=== PATIENT | female | born 1955 | race Caucasian/White ===

== ENCOUNTER 2025-06-13 14:49 | Emergency (ER) | payer OTHER ==
[~2025-06-13] VITALS: Ht 152.4 cm; Wt 31.8 kg
[2025-06-13 15:13] LABS: BASOPHILS ABSOLUTE AUTO 0.07 K/mm3 (0.00-0.23); BASOPHILS PERCENT AUTO 1 % (0-2); EOSINOPHILS ABSOLUTE AUTO 0.10 K/mm3 (0.00-0.68); EOSINOPHILS PERCENT AUTO 1 % (0-6); Hematocrit 33.2 % (33.0-51.0); Hemoglobin 10.7 g/dL (11.5-16.0); IMMATURE GRAN ABSOLUTE AUTO 0.03 K/mm3 (0.00-0.10); IMMATURE GRAN PERCENT AUTO 0 % (0-1); LYMPHOCYTES ABSOLUTE AUTO 1.47 K/mm3 (0.84-5.20); LYMPHOCYTES PERCENT AUTO 19 % (21-46); MONOCYTES ABSOLUTE AUTO 0.56 K/mm3 (0.16-1.47); MONOCYTES PERCENT AUTO 7 % (4-13); Mean Corpuscular HGB Conc 32.2 g/dL (31.5-36.5); Mean Corpuscular Volume 94 fL (80-100); NEUTROPHILS ABSOLUTE AUTO 5.35 K/mm3 (1.96-9.15); NEUTROPHILS PERCENT AUTO 71 % (41-73); NRBC ABSOLUTE 0.00 K/mm3 (0.00-0.02); NRBC Auto 0.0 /100 WBC (0.0-0.2); Platelet Count 270 K/mm3 (150-400); RDW Coefficient Variation 15.2 % (11.7-14.2); RDW Standard Deviation 52.6 fL (35.1-46.3)
[2025-06-13 15:46] LABS: Alanine Aminotransfer (ALT/SGP 14.0 U/L (12-78); Albumin, Blood 3.0 g/dL (3.4-5.0); Albumin/Globulin Ratio 0.7 (0.8-1.8); Anion Gap 8.0 mmol/L (3-11); Aspartate Aminotrans (AST/SGOT 21.0 U/L (12-37); Bilirubin, Total 0.2 mg/dL (0.1-1.0); Blood Urea Nitrogen 18.0 mg/dL (8-24); CO2, Blood 20.0 mmol/L (21-32); Calcium, Blood 9.1 mg/dL (8.5-10.1); Chloride, Blood 108.0 mmol/L (98-108); Creatinine, Blood 0.99 mg/dL (0.40-1.00); Globulin, Blood 4.1 g/dL (2.2-4.0); Glucose, Blood 83.0 mg/dL (70-99); Potassium, Blood 4.4 mmol/L (3.5-5.5); Sodium, Blood 132.0 mmol/L (136-145); Total Protein, Blood 7.1 g/dL (6.4-8.2)
[2025-06-13 16:06] LABS: Source, Urine Clean Catch
[2025-06-13 16:12] LABS: Bilirubin, Urine Neg (Neg); Color, Urine Yellow (P-Yellow); Glucose Qualitative, Urine Neg (Neg); Ketones, Urine Neg (Neg); Leukocyte Esterase, Urine Neg (Neg); Protein, Urine Neg (Neg); Specific Gravity, Urine 1.015 (1.003-1.022); Urobilinogen, Urine NORM (Normal)
[2025-06-13] MEDS ORDERED: Ketorolac Tromethamine 30mg Vial IV ONE (18:40)
[2025-06-13] MEDS ORDERED: NS 500 ML IV SCH (18:40)
[2025-06-13] MEDS ORDERED: Ipratropium/Albuterol SulF 2.5-0.5MG/3 ML Amp INH ONE (18:40)
[2025-06-13] MEDS ORDERED: Metoclopramide HCl 5MG / ML 2ML Vial IV ONE (18:40)
[2025-06-13 19:26] LABS: Influenza A, PCR NEGATIVE (NEGATIVE); Influenza B, PCR NEGATIVE (NEGATIVE); Resp Syncytial Virus, PCR NEGATIVE (NEGATIVE); SARS-Cov-2 (COVID-19) PCR, MMC NEGATIVE (NEGATIVE)
[2025-06-13] MEDS ORDERED: Magnesium Sulf 2 GM/Water 50ML 50 ML IV ONE (20:05)
[2025-06-13] MEDS ORDERED: Dexamethasone Sod Phos 10 MG/ML 1ML VIAL IV ONE (20:05)
[2025-06-13] MEDS ORDERED: Prochlorperazine Edisylate 10 mg Vial IV ONE (20:10)
[2025-06-13] MEDS ORDERED: PROC5 PO (21:06)
[2025-06-13] MEDS ORDERED: PRED20 PO (21:06)
[2025-06-14 00:56] VITALS: BP 117/54
== END 2025-06-13 21:18 | disposition home or self-care (01) ==
LOC: ER 14:49
PROVIDERS: Student in an Organized Health Care Education/Training Program
DX: G43.919 Migraine, unspecified, intractable, without status migrainosus (principal); J44.1 Chronic obstructive pulmonary disease with (acute) exacerbation; Z91.030 Bee allergy status; Z87.891 Personal history of nicotine dependence
CPT/HCPCS: 70450; 71046; 80053; 81003; 85025; 87637; 93005; 93010; 96365; 96375; 99284-25; J0780; J1100; J1885; J2765; J3475; J7030